=== PATIENT | male | born 1955 | race Caucasian/White ===

== ENCOUNTER 2016-08-02 10:39 | Outpatient (CLI) | payer MEDICARE, BC ==
[2016-08-02 11:06] LABS: #Basophils 0.1 thou/uL (0.0-0.2); #Eosinphils 0.5 thou/uL (0.0-0.7); #Lymphocytes 1.3 thou/uL (1.20-3.40); #Monocytes 0.7 thou/uL (0.11-0.59); #Neutrophils 4.1 thou/uL (1.40-6.50); %Basophils 0.9 % (0.0-1.0); %Eosinophils 7.5 % (0.0-10.0); %Lymphocytes 19.9 % (21.0-51.0); %Monocytes 10.5 % (0.0-10.0); %Neutrophils 61.2 % (42.0-75.0); Hemoglobin 16.2 g/dL (14.0-18.0); Mean Corpuscular HGB CONC 36.2 g/dL (32.0-36.0); Mean Corpuscular Hemoglobin 33.8 pg (27.0-31.0); Mean Corpuscular Volume 93.5 fl (80.0-94.0); Mean Platelet Volume 6.5 fL (7.4-10.4); Platelet Count 170 thou/uL (130-400); RBC Distribution Width 11.4 % (11.5-14.5); Red Blood Cell (RBC) Count 4.78 mill/uL (4.70-6.10); White Blood Cell (WBC) Count 6.7 thou/uL (4.8-10.8)
[2016-08-02 11:18] LABS: ALT (SGPT) 41 U/L (0-55); AST (SGOT) 27 U/L (5-34); Albumin 4.4 g/dL (3.4-4.8); Alkaline Phosphatase 60 U/L (40-150); Anion Gap 14 mmol/L (10-20); BUN (Urea Nitrogen) 21 mg/dL (8.4-25.7); Bilirubin, Total 1.2 mg/dL (0.2-1.2); Calc. Creatinine Clearance 0 mL/min (70-130); Calcium 9.1 mg/dL (7.8-10.44); Carbon Dioxide 23 mmol/L (23-31); Chloride 107 mmol/L (98-107); Estimated GFR-MDRD 74; Globulin 2.3 g/dL (2.4-3.5); Glucose 108 mg/dL (80-115); Protein, Total 6.7 g/dL (5.8-8.1); Sodium 140 mmol/L (136-145)
[2016-08-02 11:37] LABS: PSA-Asymptomatic (SCREENING) 0.48 ng/mL (0-4.0); Thyroid Stimulating Hormone 2.1787 uIU/mL (0.35-4.94)
[2016-08-02 12:35] LABS: Hemoglobin A1c 5.5 % (4.0-6.0)
== END 2016-08-02 10:40 | disposition home or self-care (01) ==
LOC: HPCALD 10:39
PROVIDERS: ATTEND Family Medicine
DX: Z12.5 Encounter for screening for malignant neoplasm of prostate (principal); E11.9 Type 2 diabetes mellitus without complications; I10 Essential (primary) hypertension
CPT/HCPCS: 36415; 80053; 83036; 84443; 85025; G0103

== ENCOUNTER 2016-08-05 10:09 | Outpatient (CLI) | payer MEDICARE, BC ==
--- NOTE | 2016-08-05 18:07 | RAD ---
CHEST TWO VIEWS 08/05/16 Comparison is made with the 06/14/14 study. The heart remains normal in size and the lungs are clear. There is no fibrotic change in the lungs, nodules, or other worrisome findings. No pleural thickening of concern was found. There are no effus ions. Degenerative changes are seen in the spine. IMPRESSION: Stable exam showing no acute finding. POS: HOME
== END 2016-08-05 10:10 | disposition home or self-care (01) ==
LOC: BURRAD 10:09
PROVIDERS: ATTEND Family Medicine
DX: J61 Pneumoconiosis due to asbestos and other mineral fibers (principal)
CPT/HCPCS: 71020

== ENCOUNTER 2016-09-30 20:38 | Emergency (ER) | payer MEDICARE, BC ==
[2016-09-30] MEDS ORDERED: hydrOXYzine 25 MG TAB ONE (21:01)
[2016-09-30] MEDS ORDERED: methylPREDNISolone Sod Succ/PF 125 MG/2 ML VIAL ONE (21:01)
== END 2016-09-30 22:00 | disposition home or self-care (01) ==
LOC: BURERS 20:38
DX: T63.461A Toxic effect of venom of wasps, accidental (unintentional), initial encounter (principal); R55 Syncope and collapse; I10 Essential (primary) hypertension; E11.9 Type 2 diabetes mellitus without complications; E78.00 Pure hypercholesterolemia, unspecified
CPT/HCPCS: 36416; 96360; 96372; J2930

== ENCOUNTER 2020-10-21 13:01 | Outpatient (CLI) | payer MEDICARE | END 2020-10-21 13:02 | disposition home or self-care (01) | LOC: BURCT 13:01 | PROVIDERS: ATTEND Family Medicine | DX: N20.0 Calculus of kidney (principal); K57.30 Diverticulosis of large intestine without perforation or abscess without bleeding | CPT/HCPCS: 74176 ==

== ENCOUNTER 2021-10-28 09:15 | Outpatient (CLI) | payer MEDICARE | END 2021-10-28 09:16 | disposition home or self-care (01) | LOC: BURRAD 09:15 | PROVIDERS: ATTEND Family Medicine | DX: J61 Pneumoconiosis due to asbestos and other mineral fibers (principal) | CPT/HCPCS: 71046 ==